=== PATIENT | male | born 1950 | race Caucasian/White ===

== ENCOUNTER 2016-06-01 15:26 | Emergency (ER) | payer OTHER ==
[2016-06-01 18:44] LABS: HEMOGLOBIN 13.5 gm/dl (14.0-17.5); RED BLOOD COUNT 4.07 M/UL (4.20-5.50); WHITE BLOOD COUNT 8.4 K/UL (4.5-11.0)
[2016-06-01 19:02] LABS: BUN/CREATININE RATIO 21 (0-10)
== END 2016-06-01 21:44 | disposition home or self-care (01) ==
LOC: ER1 15:26
PROVIDERS: Specialist/Technologist Athletic Trainer
DX: E87.1 Hypo-osmolality and hyponatremia (principal); K21.9 Gastro-esophageal reflux disease without esophagitis; I10 Essential (primary) hypertension; F17.200 Nicotine dependence, unspecified, uncomplicated
CPT/HCPCS: 36415; 70450; 70491; 71260; 80053; 81001; 83935; 84300; 85025; 93005; 99284; J7050; Q9962

== ENCOUNTER → 2016-06-30 | Outpatient (CLI) | payer OTHER | LOC: RAD 13:46 | DX: J44.9 Chronic obstructive pulmonary disease, unspecified (principal) | CPT/HCPCS: 71020 ==

== ENCOUNTER → 2016-07-08 | Outpatient (CLI) | payer OTHER | LOC: LAB 11:31 | DX: E87.1 Hypo-osmolality and hyponatremia (principal) | CPT/HCPCS: 36415; 82436; 82533; 83935; 84133; 84300; 84443 ==